=== PATIENT | female | born 2000 | race Two or more races ===

== ENCOUNTER 2023-12-17 07:27 | Emergency (ER) | payer MEDICAID ==
[~2023-12-17] VITALS: Ht 160 cm; Wt 60.9 kg
[2023-12-17 07:32] VITALS: TEMP 97.9
[2023-12-17] MEDS: LIDOCAINE 1% 10 ML VIAL SQ ONE (08:56)
[2023-12-17] MEDS ORDERED: IBUP-1492 PO (09:47)
[2023-12-17] MEDS ORDERED: DOXY-354 PO (09:47)
[2023-12-17] MEDS ORDERED: SULF-261 PO (09:47)
[2023-12-17] MEDS: DOXYCYCLINE HYCLATE 100 MG TABLET PO ONE (09:53)
[2023-12-17] MEDS: SULFAMETHOX/TRIMETH DS 800-160 MG/TABLET PO ONE (09:53)
[2023-12-17 10:00] VITALS: BP 113/67; PULSE 77; RESP 18
[2023-12-17] MEDS: OxyCODONE HCL/ACETAMINOPHEN 5-325 MG TABLET PO ONE (10:08)
== END 2023-12-17 10:11 | disposition home or self-care (01) ==
LOC: EMS 07:27
DX: L02.31 Cutaneous abscess of buttock (principal); Z88.0 Allergy status to penicillin
CPT/HCPCS: 99284; 10060; J3490